=== PATIENT | male | born 1980 | race Caucasian/White ===

== ENCOUNTER 2021-05-21 20:28 | Emergency (ER) | payer OTHER ==
[2021-05-21 21:40] LABS: HEMOGLOBIN 14.2 gm/dl (14.0-17.5); RED BLOOD COUNT 4.59 M/UL (4.20-5.50); WHITE BLOOD COUNT 5.1 K/UL (4.5-11.0)
[2021-05-21 22:02] LABS: BUN/CREATININE RATIO 14 (0-10)
== END 2021-05-21 23:00 | disposition home or self-care (01) ==
LOC: ER1 20:28
PROVIDERS: Physician Assistant
DX: J39.8 Other specified diseases of upper respiratory tract (principal); Z20.822 Contact with and (suspected) exposure to COVID-19
CPT/HCPCS: 80053; 82550; 82553; 83605; 83690; 83874; 83880; 84484; 85025; 85652; 86140; 87040; 93005; 96374; 99285; J1100; U0002

== ENCOUNTER 2021-06-20 18:41 | Emergency (ER) | payer OTHER ==
[2021-06-20 20:23] LABS: RED BLOOD COUNT 4.81 M/UL (4.20-5.50); WHITE BLOOD COUNT 4.8 K/UL (4.5-11.0)
[2021-06-20 20:52] LABS: BUN/CREATININE RATIO 12 (0-10)
[2021-06-22] MEDS ORDERED: KEPPRA500 MG PO (04:48)
== END 2021-06-21 01:29 | disposition home or self-care (01) ==
LOC: ER1 18:41
PROVIDERS: Physician Assistant
DX: R07.9 Chest pain, unspecified (principal); R06.02 Shortness of breath; R05 Cough; F17.290 Nicotine dependence, other tobacco product, uncomplicated; E11.9 Type 2 diabetes mellitus without complications; E78.5 Hyperlipidemia, unspecified; I10 Essential (primary) hypertension; Z20.822 Contact with and (suspected) exposure to COVID-19; Z88.6 Allergy status to analgesic agent
CPT/HCPCS: 71045; 80053; 82550; 82553; 83874; 83880; 84484; 85025; 85379; 85610; 85730; 93005; 94640; 94664; 94760; 96374; 99285; J2930; U0002

== ENCOUNTER 2021-06-21 23:53 | Emergency (ER) | payer OTHER ==
[2021-06-22 01:17] LABS: HEMOGLOBIN 14.5 gm/dl (14.0-17.5); RED BLOOD COUNT 4.66 M/UL (4.20-5.50)
[2021-06-22 01:22] LABS: WHITE BLOOD COUNT 10.4 K/UL (4.5-11.0)
[2021-06-22 01:44] LABS: BUN/CREATININE RATIO 22 (0-10)
[2021-06-22] MEDS ORDERED: KEPPRA500 MG PO (04:48)
== END 2021-06-22 05:24 | disposition home or self-care (01) ==
LOC: ER1 23:53
PROVIDERS: Family Medicine
DX: G40.909 Epilepsy, unspecified, not intractable, without status epilepticus (principal); S01.01XA Laceration without foreign body of scalp, initial encounter; Z86.69 Personal history of other diseases of the nervous system and sense organs; E11.9 Type 2 diabetes mellitus without complications; W19.XXXA Unspecified fall, initial encounter; Z23 Encounter for immunization
CPT/HCPCS: 12001; 70450; 71045; 80053; 82550; 82553; 83874; 84484; 85025; 90471; 90715; 93005; 96374; 99284; J1953

== ENCOUNTER 2021-07-05 14:32 | Emergency (ER) | payer OTHER ==
[~2021-07-05 14:32] MED LIST: KEPPRA500 MG PO
[2021-07-05 15:01] LABS: HEMOGLOBIN 14.9 gm/dl (14.0-17.5); RED BLOOD COUNT 4.81 M/UL (4.20-5.50); WHITE BLOOD COUNT 9.2 K/UL (4.5-11.0)
[2021-07-05 15:34] LABS: BUN/CREATININE RATIO 22 (0-10)
== END 2021-07-05 20:00 | disposition short-term general hospital (02) ==
LOC: ER1 14:32
PROVIDERS: Student in an Organized Health Care Education/Training Program
DX: R07.89 Other chest pain (principal); J39.8 Other specified diseases of upper respiratory tract; Z20.822 Contact with and (suspected) exposure to COVID-19; E11.9 Type 2 diabetes mellitus without complications; I10 Essential (primary) hypertension; F17.290 Nicotine dependence, other tobacco product, uncomplicated
CPT/HCPCS: 71045; 80053; 82550; 82553; 83605; 83735; 83874; 84100; 84484; 85025; 85379; 87040; 93005; 96365; 96375; 99285; J0696; J1100; J7030; U0002

== ENCOUNTER 2021-07-24 01:39 | Emergency (ER) | payer OTHER ==
[2021-07-24 02:10] LABS: RED BLOOD COUNT 4.57 M/UL (4.20-5.50); WHITE BLOOD COUNT 8.9 K/UL (4.5-11.0)
[2021-07-24 02:22] LABS: BUN/CREATININE RATIO 22 (0-10)
== END 2021-07-24 07:19 | disposition home or self-care (01) ==
LOC: ER1 01:39
PROVIDERS: Physician Assistant
DX: G40.909 Epilepsy, unspecified, not intractable, without status epilepticus (principal); I10 Essential (primary) hypertension; Z88.8 Allergy status to other drugs, medicaments and biological substances; Z79.899 Other long term (current) drug therapy
CPT/HCPCS: 71045; 80053; 80307; 81001; 85025; 87086; 93005; 99284; J7030

== ENCOUNTER 2022-01-06 00:46 | Emergency (ER) | payer OTHER ==
[2022-01-06 01:44] LABS: HEMOGLOBIN 14.4 gm/dl (14.0-17.5); RED BLOOD COUNT 4.68 M/UL (4.20-5.50); WHITE BLOOD COUNT 8.3 K/UL (4.5-11.0)
[2022-01-06 02:02] LABS: BUN/CREATININE RATIO 17 (0-10)
[2022-01-06] MEDS ORDERED: KEPPRA 250 MG250 MG GT (03:46)
== END 2022-01-06 04:10 | disposition home or self-care (01) ==
LOC: ER1 00:46
PROVIDERS: Family Medicine
DX: R56.9 Unspecified convulsions (principal); J39.8 Other specified diseases of upper respiratory tract; Z85.47 Personal history of malignant neoplasm of testis
CPT/HCPCS: 70450; 80053; 85025; 93005; 99285

== ENCOUNTER 2022-02-21 03:01 | Emergency (ER) | payer OTHER ==
[~2022-02-21 03:01] MED LIST changes: +KEPPRA 250 MG250 MG GT
[2022-02-21 04:32] LABS: BUN/CREATININE RATIO 17 (0-10); HEMOGLOBIN 12.5 gm/dl (14.0-17.5); RED BLOOD COUNT 4.16 M/UL (4.20-5.50)
== END 2022-02-21 06:00 | disposition home or self-care (01) ==
LOC: ER1 03:01
PROVIDERS: Family Medicine
DX: G40.909 Epilepsy, unspecified, not intractable, without status epilepticus (principal); Z88.6 Allergy status to analgesic agent
CPT/HCPCS: 80048; 80307; 81001; 85025; 93005; 96374; 99284; J1953; J7030